=== PATIENT | male | born 1985 | race Caucasian/White ===

== ENCOUNTER → 2016-07-05 | Outpatient (CLI) | payer BC | LOC: LAB 15:56 | DX: R42 Dizziness and giddiness (principal); R53.81 Other malaise; I10 Essential (primary) hypertension ==

== ENCOUNTER → 2016-08-11 | Outpatient (CLI) | payer BC | LOC: RAD 07-22 15:00 → VAS 15:55 | DX: I10 Essential (primary) hypertension (principal); R42 Dizziness and giddiness; R53.81 Other malaise ==